=== PATIENT | female | born 1970 | race African-American/Black ===

== ENCOUNTER 2017-05-12 11:55 | Emergency (ER) | payer MEDICARE, MEDICAID ==
[~2017-05-12] VITALS: Ht 165.1 cm; Wt 74.0 kg
[~2017-05-12 11:55] MED LIST: ABILIFY10 M1 PO; AMOXICILLIN500 MG PO; AUGMENTIN875TAB PO; BACTRIM DS1 TAB PO; BOOSTRIX IM; CEPHALEXIN500 MG PO; CIPROFLOXACN500 MG PO; DIFLUCAN150 MG PO; DOXYCYC MONO100 M1 PO; DOXYCYCL HYC100 MG PO; INDOCIN SR75 MG OR; LORTAB 10-325 M1 TAB PO; LORTAB 1010 MG PO; LORTAB5 OR; LYRICA50 MG PO; NO HOME MEDS; NORCO1 TA1 PO; NORCO1 TA2 PO; NYSTATIN100000 M1 PO; ONDANSETRON4 MG PO; PHENERGAN25 MG/TAB PO; PREDNISONE20 MG PO; PROZAC20 MG PO; ROCEPHIN 1 GM1 GM IM; TRAMADOL HCL50 MG OR; TRAMADOL HCL50 MG PO; TRAMADOL HYDROC50 MG PO; TRAZODONE150 MG PO; ULTRAM50 M1 PO; VICOPROFEN OR; ZESTRIL5 M1 PO; ZOFRAN4 MG/TAB PO
[2017-05-12] MEDS ORDERED: LOSARTAN POT25 MG PO (12:09)
[2017-05-12] MEDS ORDERED: LORTAB 1010 MG PO (12:09)
[2017-05-12] MEDS ORDERED: ZITHROMAX250 MG PO (12:31)
[2017-05-12] MEDS ORDERED: TESSALON PER100 MG PO (12:31)
[2017-05-12 12:37] VITALS: BP 133/105
== END 2017-05-12 12:45 | disposition home or self-care (01) ==
LOC: ED 11:55
DX: J40 Bronchitis, not specified as acute or chronic (principal); H00.014 Hordeolum externum left upper eyelid; H00.011 Hordeolum externum right upper eyelid; R50.9 Fever, unspecified; R09.81 Nasal congestion; R05 Cough

== ENCOUNTER 2018-07-05 10:17 | Emergency (ER) | payer MEDICARE, MEDICAID ==
[~2018-07-05] VITALS: Ht 165.1 cm; Wt 65.9 kg
[~2018-07-05 10:17] MED LIST changes: +LOSARTAN POT25 MG PO; +TESSALON PER100 MG PO; +ZITHROMAX250 MG PO
[2018-07-05 10:55] LABS: HEMATOCRIT 47.1 % (37.0-47.0); IMMATURE GRANULOCYTES 0.6 % (0.0-5.0); MEAN CELL VOLUME 86.3 fL CALC (80.0-100.0); MEAN CORPUSCULAR HGB 27.5 pG CALC (26.0-32.0); MEAN CORPUSCULAR HGB CONC 31.8 g/L CALC (32.0-36.0); NEUT# 1.66 thou/uL (2.00-7.15); RED BLOOD COUNT 5.46 mill/uL (4.20-5.60); RED CELL DISTRI WIDTH 14.6 % (11.5-15.5)
[2018-07-05 10:57] LABS: URINE BILIRUBIN - DIPSTICK NEGATIVE (NEGATIVE); URINE BLOOD DIPSTICK LARGE (NEGATIVE); URINE COLOR YELLOW; URINE GLUCOSE - DIPSTICK NEGATIVE (NEGATIVE); URINE KETONE NEGATIVE (NEGATIVE); URINE LEUK ESTERASE TRACE (NEGATIVE); URINE PROTEIN - DIPSTICK NEGATIVE (NEG-TRACE); URINE UROBILINOGEN - DIPSTICK 0.2 E.U./dL (0.2)
[2018-07-05 10:58] LABS: URINE BACTERIA MANY hpf; URINE EPITHELIAL CELLS MODERATE EPI/hpf (0-FEW); URINE NITRITE - DIPSTICK POSITIVE (Negative); URINE RBC 50-100 RBC/hpf (0-5)
[2018-07-05 11:13] LABS: ANION GAP 14 (6-22 (CALC)); BUN 15 mg/dL (7-17); BUN/CREATININE RATIO 16 (12-20 (CALC)); CARBON DIOXIDE 23 mmol/l (22-30); CHLORIDE 107 mmol/l (95-108); CREATININE 0.9 mg/dL (0.5-1.0); GFR > 60 ML/MIN (>=60 (CALC)); GFR FOR AFR.AMER. > 60 ML/MIN (>=60 (CALC)); POTASSIUM 4.5 mmol/l (3.5-5.1); SODIUM 139 mmol/l (137-146)
[2018-07-05] MEDS ORDERED: CEPHALEXIN500 M1 PO (11:17)
[2018-07-05 12:46] VITALS: BP 149/70
== END 2018-07-05 12:56 | disposition home or self-care (01) ==
LOC: ED 10:17
PROVIDERS: Family Medicine
DX: N93.9 Abnormal uterine and vaginal bleeding, unspecified (principal); R10.32 Left lower quadrant pain; M54.5 Low back pain; B96.20 Unspecified Escherichia coli [E. coli] as the cause of diseases classified elsewhere

== ENCOUNTER 2019-01-08 09:06 | Inpatient (IN) | payer MEDICARE, MEDICAID ==
[~2019-01-08] VITALS: Ht 165.1 cm; Wt 63.0 kg
[~2019-01-08 09:06] MED LIST changes: +CEPHALEXIN500 M1 PO
[2019-01-08 09:51] LABS: GFR > 60 ML/MIN (>=60 (CALC)); GFR FOR AFR.AMER. > 60 ML/MIN (>=60 (CALC))
[2019-01-08 09:51] LABS: HEMATOCRIT 41.8 % (37.0-47.0); HEMOGLOBIN 13.8 g/dl (12.0-16.0); IMMATURE GRANULOCYTES 0.7 % (0.0-5.0); MEAN CORPUSCULAR HGB 27.1 pG CALC (26.0-32.0); NEUT# 9.4 thou/uL (2.00-7.15); RED BLOOD COUNT 5.1 mill/uL (4.20-5.60); RED CELL DISTRI WIDTH 14.9 % (11.5-15.5)
[2019-01-08 09:57] LABS: URINE BLOOD DIPSTICK LARGE (NEGATIVE); URINE GLUCOSE - DIPSTICK NEGATIVE (NEGATIVE); URINE KETONE NEGATIVE (NEGATIVE); URINE LEUK ESTERASE NEGATIVE (NEGATIVE); URINE NITRITE - DIPSTICK NEGATIVE (Negative); URINE PH 5.5 (4.5-8.0); URINE PROTEIN - DIPSTICK 100 mg/dL (NEG-TRACE); URINE SPECIFIC GRAVITY 1.025
[2019-01-08 10:00] LABS: URINE BILIRUBIN - DIPSTICK SMALL (NEGATIVE); URINE COLOR DK. YELLOW
[2019-01-08 10:04] LABS: URINE EPITHELIAL CELLS FEW EPI/hpf (0-FEW); URINE MUCUS FEW hpf (NONE-FEW)
[2019-01-08 10:13] LABS: ALBUMIN 3.8 g/dL (3.2-5.0); ALKALINE PHOSPHATASE 152 u/l (38-126); ANION GAP 16 (6-22 (CALC)); BUN 11 mg/dL (7-17); BUN/CREATININE RATIO 13 (12-20 (CALC)); CARBON DIOXIDE 23 mmol/l (22-30); CHLORIDE 99 mmol/l (95-108); CREATININE 0.9 mg/dL (0.5-1.0); GFR > 60 ML/MIN (>=60 (CALC)); GFR FOR AFR.AMER. > 60 ML/MIN (>=60 (CALC)); LIPASE 52 u/l (23-300); POTASSIUM 3.8 mmol/l (3.5-5.1); SGOT/AST 32 u/l (14-36); SODIUM 134 mmol/l (137-146)
[2019-01-08 10:16] LABS: BILIRUBIN, TOTAL 1.4 mg/dL (0.0-1.4)
[2019-01-08] MEDS ORDERED: DOCUSATE CAL240 MG PO (10:59)
[2019-01-08] MEDS ORDERED: PRILOSEC20 MG/CAP PO (10:59)
[2019-01-08 11:41] VITALS: BP 116/78
[2019-01-08 14:55] VITALS: BP 110/75
[2019-01-08 19:07] VITALS: BP 133/88
[2019-01-09 03:54] VITALS: BP 132/77
[2019-01-09 05:37] LABS: IMMATURE GRANULOCYTES 1.1 % (0.0-5.0); MEAN CELL VOLUME 81.9 fL CALC (80.0-100.0); MEAN CORPUSCULAR HGB 27.1 pG CALC (26.0-32.0); MEAN CORPUSCULAR HGB CONC 33.1 g/L CALC (32.0-36.0); NEUT# 5.34 thou/uL (2.00-7.15); RED BLOOD COUNT 3.87 mill/uL (4.20-5.60); RED CELL DISTRI WIDTH 14.6 % (11.5-15.5)
[2019-01-09 05:39] LABS: HEMATOCRIT 31.7 % (37.0-47.0); HEMOGLOBIN 10.5 g/dl (12.0-16.0)
[2019-01-09 05:51] LABS: ANION GAP 13 (6-22 (CALC)); BUN 12 mg/dL (7-17); BUN/CREATININE RATIO 18 (12-20 (CALC)); CARBON DIOXIDE 23 mmol/l (22-30); CHLORIDE 103 mmol/l (95-108); CREATININE 0.7 mg/dL (0.5-1.0); GFR > 60 ML/MIN (>=60 (CALC)); GFR FOR AFR.AMER. > 60 ML/MIN (>=60 (CALC)); POTASSIUM 4.2 mmol/l (3.5-5.1); SODIUM 135 mmol/l (137-146)
[2019-01-09 08:55] VITALS: BP 117/76
[2019-01-09 15:06] VITALS: BP 153/108
[2019-01-09 15:42] VITALS: BP 153/93
[2019-01-09 19:01] VITALS: BP 165/105
[2019-01-10] VITALS (9 sets, daily range): BP systolic 128–182; BP diastolic 83–104
[2019-01-10 05:58] LABS: HEMATOCRIT 33.3 % (37.0-47.0); HEMOGLOBIN 11.1 g/dl (12.0-16.0); MEAN CELL VOLUME 81.8 fL CALC (80.0-100.0); MEAN CORPUSCULAR HGB 27.3 pG CALC (26.0-32.0); MEAN CORPUSCULAR HGB CONC 33.3 g/L CALC (32.0-36.0); RED BLOOD COUNT 4.07 mill/uL (4.20-5.60); RED CELL DISTRI WIDTH 14.7 % (11.5-15.5)
[2019-01-10 06:18] LABS: ANION GAP 12 (6-22 (CALC)); BUN 16 mg/dL (7-17); BUN/CREATININE RATIO 28 (12-20 (CALC)); CARBON DIOXIDE 22 mmol/l (22-30); CHLORIDE 107 mmol/l (95-108); CREATININE 0.6 mg/dL (0.5-1.0); GFR > 60 ML/MIN (>=60 (CALC)); GFR FOR AFR.AMER. > 60 ML/MIN (>=60 (CALC)); SODIUM 135 mmol/l (137-146)
[2019-01-10 06:30] LABS: POTASSIUM 5.5 mmol/l (3.5-5.1)
[2019-01-11 04:00] VITALS: BP 112/76
[2019-01-11 06:24] LABS: ANION GAP 10 (6-22 (CALC)); BUN 14 mg/dL (7-17); BUN/CREATININE RATIO 21 (12-20 (CALC)); CARBON DIOXIDE 25 mmol/l (22-30); CHLORIDE 107 mmol/l (95-108); CREATININE 0.7 mg/dL (0.5-1.0); GFR > 60 ML/MIN (>=60 (CALC)); GFR FOR AFR.AMER. > 60 ML/MIN (>=60 (CALC)); POTASSIUM 3.9 mmol/l (3.5-5.1); SODIUM 138 mmol/l (137-146)
[2019-01-11 07:37] VITALS: BP 156/96
[2019-01-11] MEDS ORDERED: PREDNISONE10 MG PO (09:02)
[2019-01-11] MEDS ORDERED: ROCEPHIN1 G1 IV (09:02)
== END 2019-01-11 11:58 | disposition home or self-care (01) | DRG 871 ==
LOC: ED 09:06 → ED-I 10:31 → ED 10:47 → MS2 10:48
PROVIDERS: Family Medicine; Nurse Practitioner Family; ADMIT Internal Medicine; ATTEND Internal Medicine
DX: A40.3 Sepsis due to Streptococcus pneumoniae (principal); J18.9 Pneumonia, unspecified organism; F32.9 Major depressive disorder, single episode, unspecified; E83.52 Hypercalcemia; K76.0 Fatty (change of) liver, not elsewhere classified; K21.9 Gastro-esophageal reflux disease without esophagitis; M79.7 Fibromyalgia; F17.210 Nicotine dependence, cigarettes, uncomplicated
CPT/HCPCS: G0378; J3370; Q9967

== ENCOUNTER 2019-02-26 14:19 | Emergency (ER) | payer MEDICARE, MEDICAID ==
[~2019-02-26] VITALS: Ht 165.1 cm; Wt 60.0 kg
[~2019-02-26 14:19] MED LIST changes: +DOCUSATE CAL240 MG PO; +PREDNISONE10 MG PO; +PRILOSEC20 MG/CAP PO; +ROCEPHIN1 G1 IV
[2019-02-26 15:30] LABS: HEMATOCRIT 42.5 % (37.0-47.0); HEMOGLOBIN 13.4 g/dl (12.0-16.0); IMMATURE GRANULOCYTES 0.7 % (0.0-5.0); MEAN CELL VOLUME 83.3 fL CALC (80.0-100.0); MEAN CORPUSCULAR HGB 26.3 pG CALC (26.0-32.0); MEAN CORPUSCULAR HGB CONC 31.5 g/L CALC (32.0-36.0); NEUT# 5.09 thou/uL (2.00-7.15); RED BLOOD COUNT 5.1 mill/uL (4.20-5.60); RED CELL DISTRI WIDTH 15.2 % (11.5-15.5)
[2019-02-26 15:42] LABS: ALBUMIN 3.9 g/dL (3.2-5.0); ALKALINE PHOSPHATASE 143 u/l (38-126); ANION GAP 15 (6-22 (CALC)); BILIRUBIN, TOTAL 0.5 mg/dL (0.0-1.4); BUN 16 mg/dL (7-17); BUN/CREATININE RATIO 18 (12-20 (CALC)); CARBON DIOXIDE 22 mmol/l (22-30); CHLORIDE 104 mmol/l (95-108); CREATININE 0.9 mg/dL (0.5-1.0); GFR > 60 ML/MIN (>=60 (CALC)); GFR FOR AFR.AMER. > 60 ML/MIN (>=60 (CALC)); POTASSIUM 3.8 mmol/l (3.5-5.1); SGOT/AST 32 u/l (14-36); SODIUM 137 mmol/l (137-146); TOTAL PROTEIN 9.8 g/dL (6.3-8.2)
[2019-02-26 16:04] LABS: URINE BILIRUBIN - DIPSTICK NEGATIVE (NEGATIVE); URINE BLOOD DIPSTICK LARGE (NEGATIVE); URINE COLOR YELLOW; URINE GLUCOSE - DIPSTICK NEGATIVE (NEGATIVE); URINE KETONE NEGATIVE (NEGATIVE); URINE NITRITE - DIPSTICK NEGATIVE (Negative); URINE PROTEIN - DIPSTICK 30 mg/dL (NEG-TRACE); URINE SPECIFIC GRAVITY >=1.030; URINE UROBILINOGEN - DIPSTICK 0.2 E.U./dL (0.2)
[2019-02-26 16:05] LABS: URINE LEUK ESTERASE SMALL (NEGATIVE)
[2019-02-26 16:09] LABS: BARBITURATES NEGATIVE (NEGATIVE); COCAINE POSITIVE (NEGATIVE); METHADONE NEGATIVE (NEGATIVE); OXCYCODONE NEGATIVE (NEGATIVE); TETRAHYDROCANNABIONOL NEGATIVE (NEGATIVE); TRICYLIC ANTIDEPRESSANTS NEGATIVE (NEGATIVE)
[2019-02-26 16:14] LABS: URINE BACTERIA FEW hpf; URINE RBC TNTC RBC/hpf (0-5); URINE SQUAMOUS EPITHELIAL CELL FEW EPI/hpf (0-FEW); URINE WBC 20-50 WBC/hpf (0-5)
[2019-02-26] MEDS ORDERED: OMNICEF300 M1 PO (17:06)
[2019-02-26 17:54] VITALS: BP 138/91
== END 2019-02-26 17:54 | disposition home or self-care (01) ==
LOC: ED 14:19
DX: N12 Tubulo-interstitial nephritis, not specified as acute or chronic (principal); F19.10 Other psychoactive substance abuse, uncomplicated; M79.7 Fibromyalgia; F17.200 Nicotine dependence, unspecified, uncomplicated

== ENCOUNTER 2021-02-07 11:09 | Emergency (ER) | payer MEDICAID ==
[~2021-02-07] VITALS: Ht 165.1 cm; Wt 84.0 kg
[~2021-02-07 11:09] MED LIST changes: +OMNICEF300 M1 PO
[2021-02-07 12:29] LABS: HEMATOCRIT 45.9 % (37.0-47.0); HEMOGLOBIN 14.6 g/dl (12.0-16.0); IMMATURE GRANULOCYTES 0.2 % (0.0-5.0); MEAN CORPUSCULAR HGB 27.3 pG CALC (26.0-32.0); MEAN CORPUSCULAR HGB CONC 31.8 g/dL CAL (32.0-36.0); NEUT# 5.44 thou/uL (2.00-7.15); RED BLOOD COUNT 5.34 mill/uL (4.20-5.60); RED CELL DISTRI WIDTH 15.2 % (11.5-15.5)
[2021-02-07 12:55] LABS: ALBUMIN 3.7 g/dL (3.2-5.0); ALKALINE PHOSPHATASE 138 u/l (38-126); ANION GAP 11 (6-22 (CALC)); BILIRUBIN, TOTAL 0.5 mg/dL (0.0-1.4); BUN 10 mg/dL (7-17); BUN/CREATININE RATIO 13 (12-20 (CALC)); CARBON DIOXIDE 23 mmol/l (22-30); CHLORIDE 105 mmol/l (95-108); CREATININE 0.7 mg/dL (0.5-1.0); GFR > 60 ML/MIN (>=60 (CALC)); GFR FOR AFR.AMER. > 60 ML/MIN (>=60 (CALC)); POTASSIUM 4.1 mmol/l (3.5-5.1); SGOT/AST 34 u/l (14-36); SODIUM 135 mmol/l (137-146)
[2021-02-07] MEDS ORDERED: KEFLEX500 MG PO (13:46)
[2021-02-07 14:04] VITALS: BP 100/68
== END 2021-02-07 14:04 | disposition home or self-care (01) ==
LOC: ED 11:09
PROVIDERS: Emergency Medicine
DX: J06.9 Acute upper respiratory infection, unspecified (principal); I10 Essential (primary) hypertension; M79.7 Fibromyalgia; J45.909 Unspecified asthma, uncomplicated; F32.9 Major depressive disorder, single episode, unspecified; I20.9 Angina pectoris, unspecified; F17.210 Nicotine dependence, cigarettes, uncomplicated; Z98.84 Bariatric surgery status; Z20.822 Contact with and (suspected) exposure to COVID-19